=== PATIENT | female | born 1950 | race Caucasian/White ===

== ENCOUNTER → 2019-09-13 | Outpatient (CLI) | payer MEDICARE | END | disposition home or self-care (01) | LOC: OIH 14:57 | PROVIDERS: ATTEND Internal Medicine | DX: M19.072 Primary osteoarthritis, left ankle and foot (principal); M19.071 Primary osteoarthritis, right ankle and foot; M20.42 Other hammer toe(s) (acquired), left foot; M20.12 Hallux valgus (acquired), left foot; M77.9 Enthesopathy, unspecified; M20.41 Other hammer toe(s) (acquired), right foot; M19.042 Primary osteoarthritis, left hand; M19.041 Primary osteoarthritis, right hand; L40.50 Arthropathic psoriasis, unspecified | CPT/HCPCS: 73620 ==